=== PATIENT | male | born 1995 | race Hispanic/Latino ===

== ENCOUNTER 2022-01-12 21:57 | Emergency (ER) | payer SELFPAY ==
[2022-01-12] MEDS ORDERED: HYDROCODONE/APAP 7.5/325 MG TAB ONE (23:23)
[2022-01-12] MEDS ORDERED: IBUPROFEN 400 MG TAB ONE (23:24)
--- NOTE | 2022-01-13 00:24 | EDPHYS ---
Physician Documentation [facility] Name: Tenzin Estrada Age: 26 yrs Sex: Male : 1995 Arrival Date: 01/12/2022 Time: 22:05 Bed 23 Private MD: ED Physician Buster Anne HPI: 01/12 23:10 This 26 yrs old Male presents to ER via Ambulatory with complaints of Arm cp Injury. 23:10 The patient or guardian complains of decreased range of motion, injury, pain, that is cp acute. The complaints affect the right wrist. Context: resulted from a fall, on an outstretched hand. Onset: The symptoms/episode began/occurred just prior to arrival. Treatment prior to arrival includes: no previous treatment. Associated signs and symptoms: Pertinent positives: decreased range of motion, deformity, swelling, Pertinent negatives: numbness. Historical: - Allergies: 22:25 No Known Allergies; kd3 - Home Meds: 22:25 None [Active]; kd3 - PMHx: 22:25 None; kd3 - PSHx: 22:25 None; kd3 - Immunization history:: Adult Immunizations up to date. - Social history:: Smoking status: Patient denies any tobacco usage or history of. ROS: 23:15 Eyes: Negative for injury, pain, redness, and discharge. cp 23:15 Constitutional: Negative for fever. 23:15 Neck: Negative for pain with movement, pain at rest, stiffness. 23:15 Cardiovascular: Negative for chest pain. 23:15 Abdomen/GI: Negative for abdominal pain, nausea, vomiting, and diarrhea. 23:15 MS/extremity: Positive for injury or acute deformity, decreased range of motion, pain, of the right wrist, Negative for paresthesias. 23:15 Neuro: Negative for altered mental status, headache, weakness. 23:15 All other systems are negative. Exam: 23:20 Constitutional: The patient appears in no acute distress, alert, awake, well developed, cp well nourished, uncomfortable. 23:20 Head/Face: Normocephalic, atraumatic. cp 23:20 Neck: ROM/movement: is normal, is supple, without pain, no range of motions limitations. 23:20 Chest/axilla: Inspection: normal. 23:20 Cardiovascular: Rate: normal. 23:20 Respiratory: the patient does not display signs of respiratory distress, Respirations: normal, no use of accessory muscles, no retractions, labored breathing, is not present. 23:20 Abdomen/GI: Exam negative for discomfort, distension, guarding, Inspection: abdomen appears normal. 23:20 Back: pain, is absent, ROM is normal. 23:20 Musculoskeletal/extremity: Extremities: grossly normal except: noted in the right wrist: decreased ROM, pain, swelling, tenderness, mild dinner fork deformity, ROM: limited active range of motion, in the extension of wrist, limited passive range of motion, in the extension of wrist, Perfusion: the extremity is normally perfused throughout, the right hand and right wrist Sensation intact. small superficial abrasion noted, otherwise skin intact. Vital Signs: 22:19 BP 137 / 87; Pulse 71; Resp 16; Temp 98.7; Pulse Ox 100% on R/A; Weight 92.99 kg; kd3 Height 6 ft. (182.88 cm); Pain 7/10; 01/13 00:33 BP 148 / 97; Pulse 80; Resp 16 S; Pulse Ox 100% on R/A; bb 01/12 22:19 Body Mass Index 27.80 (92.99 kg, 182.88 cm) kd3 Procedures: 01/12 00:30 Splinting: Splint applied to right wrist using sling, orthoglass sugar tong type. cp applied by tech. Examined by me, post splint application: neurovascular intact, Patient tolerated well. MDM: 23:00 Patient medically screened. cp 23:45 Differential diagnosis: dislocation, open fracture, closed fracture, contusion. Test cp interpretation: by ED physician or midlevel provider: plain radiologic studies. 23:45 Counseling: I had a detailed discussion with the patient and/or guardian regarding: the cp historical points, exam findings, and any diagnostic results supporting the discharge/admit diagnosis, radiology results, the need for outpatient follow up, for definitive care, a orthopedic surgeon. Response to treatment: the patient's symptoms have markedly improved after treatment, VSS. Pain improved with meds. Extremity splinted. Will discharge to home for continued monitoring with instructions to f/u with ortho. 01/13 00:23 Data reviewed: vital signs, nurses notes, radiologic studies, plain films. cp 01/12 22:26 Order name: XRAY Wrist RIGHT 3 view kd3 01/12 23:39 Order name: Splint - Sugar Tong - Forearm; Complete Time: 00:30 cp 01/12 23:39 Order name: Sling; Complete Time: 00:30 cp Administered Medications: 01/12 23:21 Drug: Hydrocodone-Acetaminophen (7.5 mg-325 mg) 1 tabs Route: PO; bb 01/13 00:12 Follow up: Response: No adverse reaction; Pain is decreased bb 01/12 23:21 Drug: Ibuprofen 800 mg Route: PO; bb 01/13 00:12 Follow up: Response: No adverse reaction; Pain is decreased bb Disposition: 07:59 Co-signature as Attending Physician, Buster Anne MD. [email or web address] Disposition Summary: 01/13/22 00:23 Discharge Ordered Location: Home cp Problem: new cp Symptoms: have improved cp Condition: Stable cp Diagnosis - Right Intraarticular distal radius fracture cp - Displaced fracture of right ulna styloid process, initial encounter for closed cp fracture Followup: cp - With: Abbe Wallace MD - When: 1 week - Reason: Recheck today's complaints Discharge Instructions: - Discharge Summary Sheet cp - Radial Fracture cp - Ulnar Fracture cp Forms: - Medication Reconciliation Form cp - Thank You Letter cp - Antibiotic Education cp - Prescription Opioid Use cp Prescriptions: - Naprosyn 500 mg Oral Tablet - take 1 tablet by ORAL route 2 times per day take with food; 20 tablet; Refills: cp 0, Product Selection Permitted - Tylenol-Codeine #3 300 mg-30 mg Oral - take 2 tablet by ORAL route every 6-8 hours; 20 tablet; Refills: 0, Product cp Selection Permitted Signatures: Dispatcher [employer] Snehal Del Angel RN RN Gio Lantigua PA PA cp Buster Anne MD MD [email or web address] Mohini Dumont RN RN kd3 Corrections: (The following items were deleted from the chart) 21:54 01/12 21:15 MS/extremity: Positive for injury or acute deformity, decreased range of cp motion, pain, of the right wrist, Negative for paresthesias, cp 01/13 21:54 01/12 21:15 Constitutional: Negative for fever, cp cp 01/13 21:54 01/12 21:15 Abdomen/GI: Negative for abdominal pain, nausea, vomiting, and diarrhea, cp cp 01/13 21:01/12 21:15 Cardiovascular: Negative for chest pain, cp cp 01/13 21:01/12 21:15 Eyes: Negative for injury, pain, redness, and discharge, cp cp 01/13 21:01/12 21:15 Neck: Negative for pain with movement, pain at rest, stiffness, cp cp 01/13 21:01/12 21:15 Neuro: Negative for altered mental status, headache, weakness, cp cp 01/13 21:01/12 21:15 All other systems are negative, cp cp
--- NOTE | 2022-01-13 00:24 | ER ---
Nurse's Notes [facility] Name: Tenzin Estrada Age: 26 yrs Sex: Male : 1995 Arrival Date: 01/12/2022 Time: 22:05 Bed 23 Private MD: Diagnosis: Right Intraarticular distal radius fracture;Displaced fracture of right ulna styloid process, initial encounter for closed fracture Presentation: 01/12 22:19 Chief complaint: Patient states: pt fell from a ladder. fell approximately 5 feet. fell kd3 on outstretched right arm. right wrist pain and swelling. Coronavirus screen: Vaccine status: Patient reports receiving the 2nd dose of the covid vaccine. Ebola Screen: No symptoms or risks identified at this time. Initial Sepsis Screen: Does the patient meet any 2 criteria? No. Patient's initial sepsis screen is negative. Does the patient have a suspected source of infection? No. Patient's initial sepsis screen is negative. Risk Assessment: Do you want to hurt yourself or someone else? Patient reports no desire to harm self or others. Onset of symptoms was January 12, 2022. 22:19 Method Of Arrival: Ambulatory kd3 22:19 Acuity: YANETH 3 kd3 Triage Assessment: 22:25 General: Appears in no apparent distress. Behavior is calm, cooperative. Pain: kd3 Complains of pain in right wrist. Musculoskeletal: No deficits noted. Injury Description: Bruise sustained to right wrist. Historical: - Allergies: 22:25 No Known Allergies; kd3 - Home Meds: 22:25 None [Active]; kd3 - PMHx: 22:25 None; kd3 - PSHx: 22:25 None; kd3 - Immunization history:: Adult Immunizations up to date. - Social history:: Smoking status: Patient denies any tobacco usage or history of. Screenin:21 Abuse screen: Denies threats or abuse. Nutritional screening: No deficits noted. bb Tuberculosis screening: No symptoms or risk factors identified. Fall Risk None identified. Assessment: 23:21 General: Appears in no apparent distress. uncomfortable, Behavior is calm, cooperative. bb Pain: Complains of pain in right wrist. Neuro: Level of Consciousness is awake, alert, obeys commands, Oriented to person, place, time, situation. Cardiovascular: Capillary refill < 3 seconds Patient's skin is warm and dry. Respiratory: Respiratory effort is even, unlabored, Respiratory pattern is regular. GI: No signs and/or symptoms were reported involving the gastrointestinal system. Derm: Skin is pink, warm \T\ dry. Musculoskeletal: Swelling present in right wrist Reports pain in right wrist. 01/13 00:30 Reassessment: Patient is alert, oriented x 3, equal unlabored respirations, skin bb warm/dry/pink. splint to right wrist in place and checked by Gio CRUZ. Pt verbalized understanding of and agrees to plan of care discharge instructions given pt ambulated with steady gait to exit accompanied by family. Vital Signs: 01/12 22:19 BP 137 / 87; Pulse 71; Resp 16; Temp 98.7; Pulse Ox 100% on R/A; Weight 92.99 kg; kd3 Height 6 ft. (182.88 cm); Pain 7/10; 01/13 00:33 BP 148 / 97; Pulse 80; Resp 16 S; Pulse Ox 100% on R/A; bb 01/12 22:19 Body Mass Index 27.80 (92.99 kg, 182.88 cm) kd3 ED Course: 01/12 22:05 Patient arrived in ED. bp1 22:23 Triage completed. kd3 22:25 Arm band placed on left wrist. kd3 22:31 Gio Zapata PA is PHCP. cp 22:31 Buster Anne MD is Attending Physician. cp 23:00 XRAY Wrist RIGHT 3 view In Process Unspecified. EDMS 23:21 Patient has correct armband on for positive identification. Bed in low position. Call bb light in reach. Side rails up X 1. Adult w/ patient. 01/13 00:21 Abbe Wallace MD is Referral Physician. cp 00:34 No provider procedures requiring assistance completed. Patient did not have IV access bb during this emergency room visit. Administered Medications: 01/12 23:21 Drug: Hydrocodone-Acetaminophen (7.5 mg-325 mg) 1 tabs Route: PO; bb 01/13 00:12 Follow up: Response: No adverse reaction; Pain is decreased bb 01/12 23:21 Drug: Ibuprofen 800 mg Route: PO; bb 01/13 00:12 Follow up: Response: No adverse reaction; Pain is decreased bb Outcome: 00:23 Discharge ordered by . cp 00:34 Discharged to home ambulatory, with family. bb 00:34 Condition: stable 00:34 Discharge instructions given to patient, Instructed on discharge instructions, follow up and referral plans. no driving heavy equipment, medication usage, Demonstrated understanding of instructions, follow-up care, medications, splint care, Prescriptions given X 2. 00:35 Patient left the ED. bb Signatures: Dispatcher [employer] EDMS Snehal Mendoza RN RN bb Gio Zapata PA PA cp Paniauga, Brittany bp1 Doucette, Kyli, RN RN kd3
[2022-01-13 00:52] VITALS: TEMP 98.7; O2SAT 100
[2022-01-13 00:53] VITALS: BP 148/97
--- NOTE | 2022-01-15 13:25 | RAD REPORT ---
EXAM DESCRIPTION: RAD - Wrist Right 3 View - 01/12/2022 10:58 pm CLINICAL HISTORY: 26 years, Male, PAIN Wrist Right 3 View COMPARISON: None. FINDINGS: 3 X-ray views of the right wrist (Frontal, lateral and oblique views) were performed. There is a acute fracture along the base dorsal aspect of the distal radius with intra-articular exte nsion. There is avulsion fracture along the styloid ulnar process. There is normal alignment of the p roximal carpal row. There are no gross intraosseous lesions. No periosteal reaction were seen. IMPRESSION: Acute fracture along the base of the distal radius with intra-articular extension. Small avulsion fracture styloid ulnar process. Electronically signed by: Edouard Roche MD 01/12/2022 11:26 PM CDT Due to temporary technical issues with the PACS/Fluency reporting system, reports are being signed by the in house radiologists without review as a courtesy to insure prompt reporting. The interpreting radiologist is fully responsible for the content of the report.
== END 2022-01-13 00:35 | disposition home or self-care (01) ==
LOC: ER 21:57
PROC: 2W3CX1Z Immobilization of Right Lower Arm using Splint (ICD-10-PCS; principal; 2022-01-13)
DX: S52.571A Other intraarticular fracture of lower end of right radius, initial encounter for closed fracture (principal); S52.611A Displaced fracture of right ulna styloid process, initial encounter for closed fracture; W18.30XA Fall on same level, unspecified, initial encounter
CPT/HCPCS: 99283